=== PATIENT | male | born 1965 | race Caucasian/White ===

== ENCOUNTER 2018-06-19 09:11 | Observation (INO) | payer OTHER ==
[2018-06-19] VITALS (16 sets, daily range): BP systolic 103–154; BP diastolic 63–94
[~2018-06-19] VITALS: Ht 182.9 cm; Wt 127.4 kg
[~2018-06-19 09:11] MED LIST: ATORVASTATIN CA40 MG PO; CLONIDINE0.1 PO; COENZYME Q-10200 MG PO; FISH OIL 1,001000 M2 PO; HYDROCHLOROTHIA25 M2 PO; KLOR-CON 1010 MEQ PO; LISINOPRIL20 MG PO; METFORMIN HCL500 MG PO; PLAVIX 75 MG TA75 M1 PO; TOPROL XL100 MG PO
[2018-06-19 10:15] LABS: ANION GAP 4 mmol/L (7-16); BUN 23 mg/dL (7-18); CALCIUM 9.1 mg/dL (8.5-10.1); CHLORIDE 97 mmol/L (98-107); CO2 32 mmol/L (21-32); CREATININE 1.3 mg/dL (0.6-1.3); GLUCOSE 448 mg/dL (70-99); SODIUM 133 mmol/L (136-145)
[2018-06-19 10:20] LABS: ALBUMIN 3.7 g/dL (3.4-5.0); ALKALINE PHOSPHATASE 64 U/L (46-116); SGOT 20 U/L (15-37); SGPT 51 U/L (30-65); TOTAL BILIRUBIN 0.7 mg/dL (<0.1-1.0); TOTAL PROTEIN 6.7 g/dL (6.4-8.2)
[2018-06-19 10:28] LABS: HEMATOCRIT 47.6 % (42.0-52.0); HEMOGLOBIN 17.3 gm/dL (14.0-18.0); MCH 32.3 pg (26.0-34.0); MCHC 36.3 g/dL (28.0-37.0); MCV 89.1 fL (80.0-100.0); MPV 10.4 fl. (7.2-11.1); RBC 5.34 mil/uL (4.50-6.00); RDW-CV 12.8 % (10.5-14.5); WBC 8.1 thou/uL (4.0-11.0)
[2018-06-19 10:50] LABS: APTT 25.4 Seconds (25.0-31.3); PROTIME 10.7 Seconds (9.20-11.50)
[2018-06-19 11:53] LABS: CHOLESTEROL 139 mg/dL (<200); HDL CHOLESTEROL 29 mg/dL (>40); LDL CHOLESTEROL 32 mg/dL (<100); TC:HDL 4.8 Ratio (Not establshd); TRIGLYCERIDE 393 mg/dL (<150); VLDL 79 mg/dL (<40)
[2018-06-19 11:59] LABS: SERUM ASSESSMENT Clear
--- NOTE | 2018-06-19 17:00 | NUR ---
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 ADMISSION ASSESSMENT COMPLETE, DEFER TO COMPUTER CHARTING. 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 DRESSING TO RIGHT GROIN CDI, 2+ PEDAL PULSES. REVIEWED POST CARDIAC CATH PROCEDURE WITH PATIENT, BED REST KEEPING LEG STRAIGHT, HOLDING PRESSURE TO GROIN IF COUGHING OR SNEEZING, REPORTING PROMPTLY TO NURSING ANY CHANGE IN CONDITION. ORIENTED TO ROOM/CALL LIGHT. DENIES CHEST PAIN, DIZZINESS OR ANY DISCOMFORT. IV INFUSIN, CALL LIGHT WITHIN REACH. WILL MONITOR.
--- NOTE | 2018-06-19 18:08 | EKG ---
[place] [address] ELECTROCARDIOGRAM REPORT Name: J CARLOS RILEY Room: [address] M.R.#: [id number] Admission: 06/19/18 Attend Phys: Gabriele Thapa MD, Discharge: Date of : 65 Report #: [id number] THIS REPORT FOR: //name// [facility] Test Date: 2018-06-19 Test Time: 09:43:45 Pat Name: J CARLOS RILEY Department: Room: [facility] Gender: M Excel Developer: : 1965 Requested By: Gabriele Thapa Order Number: [id number] Raheem MD: Ted Car Measurements Intervals [place] Rate: 60 P: 22 HI: 152 QRS: -6 QRSD: 89 T: 59 QT: 408 QTc: 408 Interpretive Statements Sinus rhythm No previous ECG available for comparison Electronically Signed On 06-19-2018 18:08:18 ENERGY TRADING ANALYST by Ted Car [email or web address] <ELECTRONICALLY SIGNED> By: Ted Car MD, [facility] 06/19/18 1808 0943 0943 Ted Car MD, FACC /EPI
--- NOTE | 2018-06-19 18:10 | EKG ---
[place] [address] ELECTROCARDIOGRAM REPORT Name: J CARLOS RILEY Room: [address] M.R.#: [id number] Admission: 06/19/18 Attend Phys: Gabriele Thapa MD, Discharge: Date of : 65 Report #: [id number] THIS REPORT FOR: //name// [facility] Test Date: 2018-06-19 Test Time: 14:14:36 Pat Name: J CARLOS RILEY Department: Room: [facility] Gender: M Central Service Technician: : 1965 Requested By: Gabriele Thapa Order Number: [id number] Raheem MD: Ted Car Measurements Intervals [place] Rate: 55 P: 27 [place]: 157 QRS: -9 QRSD: 89 T: 59 QT: 418 QTc: 400 Interpretive Statements Sinus rhythm Inferior infarct, old No previous ECG available for comparison Electronically Signed On 06-19-2018 18:10:17 CLIENT SUPPORT REPRESENTATIVE by Ted Car [email or web address] <ELECTRONICALLY SIGNED> By: Ted Car MD, [facility] 06/19/18 1810 1414 1414 Ted Car MD, FACC /EPI
[2018-06-20] VITALS: BP 136/94
[2018-06-20 04:00] VITALS: BP 127/78
[2018-06-20 08:00] VITALS: BP 138/91
--- NOTE | 2018-06-20 08:38 | NUR ---
PT IS ABLE TO COMMUNICATE HIS NEEDS TO STAFF EFFECTIVELY. HE HAS DENIED THE NEED FOR PAIN MEDICATION UP TO THIS TIME. POSSIBLE DISCHARGE LATER TODAY.
--- NOTE | 2018-06-20 10:24 | EKG ---
[place] [address] ELECTROCARDIOGRAM REPORT Name: RILEYJ CARLOS CONNELLY Room: [address] M.R.#: [id number] Admission: 06/19/18 Attend Phys: Gabriele Thapa MD, Discharge: Date of : 65 Report #: [id number] THIS REPORT FOR: //name// [facility] Test Date: 2018-06-20 Test Time: 04:16:22 Pat Name: J CARLOS RILEY Department: Room: [facility] Gender: M Bag Builder: [facility] : 1965 Requested By: Gabriele Thapa Order Number: [id number] Reading MD: Juan Ventura Measurements Intervals [place] Rate: 64 P: 21 ND: 147 QRS: -13 QRSD: 93 T: 54 QT: 403 QTc: 416 Interpretive Statements Sinus rhythm Inferior infarct, old Compared to ECG 06/19/2018 14:14:36 No significant changes Electronically Signed On 06-20-2018 10:24:31 FIBRE TECHNOLOGIST by Juan Ventura [email or web address] <ELECTRONICALLY SIGNED> By: Juan Ventura MD, [facility] 06/20/18 1024 0416 0416 Juan Ventura MD, FAC /EPI
[2018-06-20 10:49] LABS: HEMATOCRIT 45.1 % (42.0-52.0); HEMOGLOBIN 16.2 gm/dL (14.0-18.0); MCV 88.7 fL (80.0-100.0); MPV 9.7 fl. (7.2-11.1); RBC 5.08 mil/uL (4.50-6.00); RDW-CV 13.1 % (10.5-14.5); WBC 8.5 thou/uL (4.0-11.0)
[2018-06-20 11:08] LABS: ALBUMIN 3.2 g/dL (3.4-5.0); CALCIUM 8.3 mg/dL (8.5-10.1); CREATININE 1.2 mg/dL (0.6-1.3); POTASSIUM 3.6 mmol/L (3.5-5.1); TOTAL BILIRUBIN 0.8 mg/dL (<0.1-1.0); TROPONIN-I LEVEL 0.15 ng/mL (<0.06)
[2018-06-20 12:19] VITALS: BP 152/95
[2018-06-20] MEDS ORDERED: EFFIENT10 MG PO (12:20)
[2018-06-20] MEDS ORDERED: TYLENOL325 MG PO (12:24)
[2018-06-20] MEDS ORDERED: ASPIR 8181 MG PO (12:26)
--- NOTE | 2018-06-20 13:03 | NUR ---
ASSUMED CARE OF PT THIS AM ASSESSED AND DOCUMENTED. PT D/C'D TO HOME. IV AND CARDIAC MONITER D/C'D. EDUCATION GIVEN RE FOLLOW-UPS, MEDICATIONS, AND DRS ORDERS. SCRIPT GIVEN. ALL BELONGINGS PACKED UP AND LEFT WITH PT ACCOMPANIED BY STAFF AND .
--- NOTE | 2018-06-20 14:30 | CARD ---
[address] [address] CARDIAC CATH REPORT Name: RILEYJ CARLOS CONNELLY Room: [address] Sushil MLynne#: [id number] Admission: 06/19/18 Attend Phys: Gabriele Thapa MD, Discharge: 06/20/18 Date of : 65 Report #: [id number] THIS REPORT FOR: //name// APPROVED REPORT Study performed: 06/19/2018 11:28:52 Patient Details Patient Status: Out-Patient Room #: The patient is a 53 year-old male Event Personnel Gabriele Thapa Cordwainer, Kathryn Velásquez RN Sustain Engineer, Martina Retana RTR Monitor, Aye Cormier Scrub Procedures Performed Art Access - R femoral artery* LYNDSEY Place w/wo Plasty Single LAD Atherectomy w/wo Plasty Sgl LAD ATHSINGLE Hemostasis w/ Angioseal Indication Positive stress test, Chest pain Risk Factors Family History, Hypercholesterolemia, Hypertension Previous Procedures/Diagnoses Previous PCI Admission/Lab Medications/Medications given during procedure Aspirin, Platelet Aff. Inhib., Angiomax IV 18 ml, Angiomax Drip IV 42 ml per hr Procedure Narrative The patient was brought electively to the Cardiac Catheterization Laboratory and was prepped and draped in a sterile manner. The right femoral was infiltrated with 2% Lidocaine subcutaneous anesthesia. A [place] 6 FR sheath was inserted into the right femoral artery. Coronary angiography was performed using coronary diagnostic catheters. The right coronary system was accessed and visualized with a Diagnostic 6Fr JR4 catheter. The left coronary system was accessed and visualized with a Diagnostic 6Fr JL4 catheter. The left ventricle was accessed and visualized with a Diagnostic 6Fr straight pigtail catheter. Left ventricular/Aortic Valve [place] [address] CARDIAC CATH REPORT Name: J CARLOS RILEY Room: [address]#: [id number] Admission: 06/19/18 Attend Phys: Gabriele Thapa MD, Discharge: 06/20/18 Date of : 65 Report #: [id number] catheter pullback. Left ventriculogram was performed in FLORES projection. Closure device was deployed with a Fr Angioseal STS 6Fr. Hemostasis was obtained with manual pressure following sheath removal without any complications. The patient tolerated the procedure well and there were no complications associated with the procedure. There was no hematoma. Intraoperative Conscious Sedation Sedation start time: 1204 Case end Time: 1339 Fentanyl 150 mcg Versed 4 mg Fluoro Time: 33.9 minutes Dose: DAP 857802 cGycm2 3401 mGy Contrast Type and Amount: Visipaque 570 ml Coronary Angiography The patient's coronary anatomy is right dominant. Diagnostic Cath Left Main 0% narrowing LAD 90% calcified eccentric mid LAD stenosis with 40% distal LAD narrowing Circumflex Total occlusion of the distal circumflex with bridging collaterals filling the most distal portion of this vessel Right Coronary 100% total occlusion of the proximal right artery with zobj-hd-deifd collaterals filling the distal right coronary artery Left Ventriculography The left ventricle is normal in size with normal contractility. The left ventricular ejection fraction is estimated to be 65%. Left ventricular wall motion abnormalities are not present. There is no mitral insufficiency. Hemodynamics The aortic pressure is 123/73 mmHg with a mean of 94 mmHg. The left ventricular pressure is 120/1 mmHg with a mean of mmHg. The left ventricular end diastolic pressure is 11 mmHg. There was no gradient across the aortic valve upon pullback. PCI Technique Lesion Anticoagulation was achieved with Angiomax. Percutaneous coronary intervention was performed on the mid left anterior descending artery segment. A 6F XB LAD 3.5 Guide Catheter was used to engage the ostium. A BMW 190cm Interventional Guidewire was [place] [address] CARDIAC CATH REPORT Name: RILEY,J CARLOS DAVID [address] [id number] Admission: 06/19/18 Attend Phys: Gabriele Thapa MD, Discharge: 06/20/18 Date of : 65 Report #: [id number] lesion. BALLOON DILATION A Balloon catheter NC Euphora 2.25x 12 was inserted and inflated up to 14.00atm for 13seconds. Additional Inflation: 17.00atm for 13seconds. Additional Inflation: 18.00atm for 11seconds. STENT DEPLOYMENT A drug-eluting stent Wyarno RX Stent 2.28A08ux,2.5x15 jalen was inserted and inflated up to 12.00atm for 23seconds. Additional Inflation: 14.00atm for 17seconds. POST STENT DEPLOYMENT BALLOON DILATION A Balloon catheter NC Trek RX 2.5 X 12 was inserted and inflated up to 14.00atm for 9seconds. Additional Inflation: 16.00atm for 7seconds. Additional Inflation: 16.00atm for 9seconds. Final angiography reveals 0 % stenosis with FAROOQ 3 flow. COMMENTS I performed angioplasty, atherotomy/atherectomy with a 2.5 x 10 angiosculpt balloon inflated to 8-12 norma and subsequently stent deployment in the mid LAD BALLOON DILATION A Balloon catheter was inserted and inflated up to 14.00atm for 11seconds. Additional Inflation: 16.00atm for 7seconds. Additional Inflation: 16.00atm for 8seconds. STENT DEPLOYMENT A drug-eluting stent Wyarno RX Stent 2.5X15mm was inserted and inflated up to 16.00atm for 14seconds. Additional Inflation: 18.00atm for 14seconds. PCI Technique Lesion Percutaneous coronary intervention was performed on the mid left anterior descending artery segment. BALLOON DILATION A Balloon catheter NC Trek RX 2.75 X 12 was inserted and inflated up to 14.00atm for 11seconds. Additional Inflation: 14.00atm for 10seconds. Additional Inflation: 16.00atm for 9seconds. PCI Technique Lesion Percutaneous coronary intervention was performed on the mid left anterior descending artery segment. [address] [address] CARDIAC CATH REPORT Name: J CARLOS RILEY Room: M.208-Deonna Keith#: [id number] Admission: 06/19/18 Attend Phys: Gabriele Thapa MD, Discharge: 06/20/18 Date of : 65 Report #: [id number] BALLOON DILATION A Balloon catheter AngioSculpt PTCA 2.5 X 10mm was inserted and inflated up to 10.00atm for 30seconds. Additional Inflation: 10.00atm for 32seconds. Additional Inflation: 10.00atm for 20seconds. Conclusion #1 significant multivessel coronary artery disease characterized by the following: A 90% heavily calcified eccentric diffuse stenosis of the mid left anterior descending coronary artery B total occlusion of the distal circumflex with bridging collaterals filling the most distal portion of that vessel C dominant right coronary artery which is totally occluded proximally with bzfm-lo-oqlvn collaterals filling the distal right coronary artery #2 normal left ventricular systolic function, estimate ejection fraction being 65% #3 normal left-sided hemodynamic study #4 successful angioplasty atherectomy and deployment of sequential drug-eluting stents at the site of 90% eccentric calcified mid LAD stenosis with 0% residual narrowing and FAROOQ-3 flow to the distal vessel Recommendations Cardiac Risk Reduction Program Aggressive Medical Therapy Medications Administered Aspirin (any) Prasugrel Diagnostic Cath Approved by: Gabriele Thapa MD Date/Time: 06/20/2018 14:28:55 <ELECTRONICALLY SIGNED> By: Gabriele Thapa MD, FACC 06/20/18 1430 1430 1430Gabriele Thapa MD, FACC /INF
--- NOTE | 2018-06-20 18:31 | D ---
[address] [address] DISCHARGE SUMMARY Name: RILEYLUZJ CARLOS DAVID Room: [address] Sushil M.R.#: [id number] Admission: 06/19/18 Attend Phys: Gabriele Thapa MD, Discharge: 06/20/18 Date of : 65 Report #: [id number] THIS REPORT FOR: //name// CC: [facility] physician/PCP Gabriele Thapa FINAL DISCHARGE DIAGNOSES: 1. Abnormal nuclear stress test. 2. Chest discomfort compatible with angina. 3. Hypertension. 4. Hyperlipidemia. 5. Type 2 diabetes. 6. Exogenous obesity. 7. Status post percutaneous coronary intervention of the left anterior descending. PROCEDURES: 06/19/2018 -- left heart catheterization, left ventriculography, selective coronary arteriography, and atherectomy with stenting of the mid to distal LAD. HOSPITAL COURSE: The patient is a very pleasant 53-year-old male with aggressive coronary artery disease status post remote stenting of the LAD. He was recently seen by Dr. Ramirez and the patient described chest discomfort. Stress testing was performed with an inducible defect. In the context of these findings as well as underlying hypertension, hyperlipidemia and diabetes, he underwent cardiac catheterization on 06/19/2018. That study demonstrated 90% eccentric calcified flq-vm-jycptx LAD stenosis. The circumflex was occluded distally with mlwb-ae-ebkv collaterals filling the distal circumflex and right coronary artery was occluded with tbbp-un-vrvtg collaterals filling the distal right coronary artery. I performed percutaneous coronary intervention on the LAD with atherectomy with an AngioSculpt 2.5, inflated to 8-12 atmospheres for plaque modification followed by deployment of 2.25 x 38 mm [place] drug-eluting stent in the qdt-mn-lnprxu LAD, post-dilated to 2.5-2.7 cm with placement of drug-eluting stents proximally in the proximal/mid LAD with 0% residual narrowing and FAROOQ 3 flow of the distal vessel. The patient did well post-procedurally with good hemostasis at the right femoral site of catheterization. He ambulated in the hallways without difficulty. The patient was discharged to home on 06/20/2018 on the following medications: Aspirin 162 mg daily, atorvastatin 20 mg daily, clonidine 0.1 mg b.i.d., fish oil 1000 mg daily, hydrochlorothiazide 25 mg daily, lisinopril 20 mg b.i.d., metformin 500 mg daily to be resumed on 06/22/2018, metoprolol succinate 100 mg b.i.d., potassium chloride 10 mEq daily, prasugrel or Effient 10 mg daily with a 60 mg veronica-procedural dose, and coenzyme Q10 200 mg daily with p.r.n. [place] [address] DISCHARGE SUMMARY Name: J CARLOS RILEY Room: [address] Sushil Keith#: [id number] Admission: 06/19/18 Attend Phys: Gabriele Thapa MD, Discharge: 06/20/18 Date of : 65 Report #: [id number] He is scheduled for followup with my nurse practitioner, Catrina Arcos in 06/27/2018 for initial followup, with myself on 08/12/2018, and subsequent care by Dr. Ramirez. Thus, the patient is discharged to home in stable condition on the aforementioned medications with followup as iterated above. <ELECTRONICALLY SIGNED> By: Gabriele Thapa MD, FACC 06/20/18 1831 1020 1048Gabriele Thapa MD, FACC /nt
== END 2018-06-20 13:12 | disposition home or self-care (01) ==
LOC: M.CL 09:11 → M.TBA-ER 13:58 → M.TBA-CV 15:27 → M.2W 17:11
PROVIDERS: ADMIT Internal Medicine
DX: R94.39 Abnormal result of other cardiovascular function study (principal); R07.89 Other chest pain; I25.10 Atherosclerotic heart disease of native coronary artery without angina pectoris; I10 Essential (primary) hypertension; E78.5 Hyperlipidemia, unspecified; E11.9 Type 2 diabetes mellitus without complications; E66.09 Other obesity due to excess calories; Z79.899 Other long term (current) drug therapy; Z79.84 Long term (current) use of oral hypoglycemic drugs; Z87.891 Personal history of nicotine dependence